=== PATIENT | male | born 1970 | race Caucasian/White ===

== ENCOUNTER 2016-09-23 08:43 | Emergency (ER) | payer BC ==
[~2016-09-23] VITALS: Ht 182.9 cm; Wt 89.8 kg
[~2016-09-23 08:43] MED LIST: NORCO 10/3251 EA ORAL
[2016-09-23 08:59] VITALS: BP 119/71
--- NOTE | 2016-09-23 09:21 | Emergency Room Report ---
History of Present Illness General Chief Complaint: Upper Respiratory Illness Source: Patient Present Illness HPI The patient presents with cough, fever, right-sided chest pain is pleuritic it began earlier this morning. It woke him up and he has pain when he moves about. Pain is 8/10, pleuritic and when he moves. Sharp. This happened to him last time he was admitted to the ICU for at least [address] [facility]. He had bilateral pneumonia at that time. The patient is a smoker. He denies any productive phlegm at this time. He took 2 [place] 10/325 since morning. The pain is still significant. He denies any nausea vomiting diarrhea dysuria skin rashes. He had a fever this morning and a slight headache. He is on medication for ADHD. He also has chronic back pain and is on chronic medication for this. No NVD, dysuria. Denies HIV. No rashes. Allergies: Coded Allergies: No Known Allergies (Unverified , 10/06/15) Patient History Past Medical History: see triage record Social History: Reports: drug use - prior "sober" for years, smoking Social History Narrative - prior drug use - now sober many years Reviewed Nursing Documentation: PMH: Agreed, PSxH: Agreed Nursing Documentation-PMH Past Medical History: No History, Except For Hx Cardiac Problems: Yes - Hypothryroidsm History Of Psychiatric Problem: Yes - taking seroquel for sleep Hx Neurological Problems: Yes - chronic back pain Review of Systems All Other Systems: negative except mentioned in HPI Physical Exam Vital Signs Date Time Temp Pulse Resp B/P Pulse Ox O2 Delivery O2 Flow Rate FiO2 09/23/16 08:52 99.7 84 18 119/71 96 Room Air Sp02 EP Interpretation: reviewed, normal General Appearance: well appearing, no apparent distress, GCS 15 Head: normocephalic Eyes: bilateral eye EOMI, bilateral eye PERRL - pupils 3 mm, bilateral eye normal inspection ENT: moist mucus membranes Neck: supple Respiratory: chest non-tender, no respiratory distress, rales Cardiovascular #1: regular rate, rhythm Cardiovascular #2: 2+ radial (R) Gastrointestinal: normal inspection, normal bowel sounds, non tender, no mass, non-distended Musculoskeletal: gait/station normal, normal range of motion, other - paraspinous tenderness Neurologic: alert, oriented x3, grossly normal Psychiatric: mood/affect normal Skin: normal inspection, warm/dry Medical Decision Making Diagnostic Impression: Primary Impression: Pneumonia Qualified Codes: J18.9 - Pneumonia, unspecified organism Additional Impressions: Chronic pain Qualified Codes: G89.29 - Other chronic pain Back pain Qualified Codes: M54.5 - Low back pain; G89.29 - Other chronic pain ER Course Patient presents with back pain, productive cough and fevers. He had similar 2 weeks ago. Differential includes pneumonia, bronchitis, pleurisy, PE number next others. Vital signs against a PE. He be evaluated with EKG, chest x-ray, labs including blood cultures and lactate, d-dimer. He'll be treated with IV hydration, IV antibiotics and analgesia. RUL infiltrate. Also + D dimer. CTA ordered. Antibiotics begun. Patient treated for pain. CTA negative for PE. WBC low which is disconcerting. + urine for amphetamine (states on ADHD med). Patient improved. Discussed with Dr. Ortiz. Transfer [facility]. Laboratory Tests Test 09/23/16 09:43 09/23/16 10:29 White Blood Count 4.7 K/UL (4.8-10.8) L Red Blood Count 4.60 M/UL (4.70-6.10) L Hemoglobin 13.0 G/DL (14.2-18.0) L Hematocrit 40.1 % (42.0-52.0) L Mean Corpuscular Volume 87 FL (80-99) Mean Corpuscular Hemoglobin 28.2 PG (27.0-31.0) Mean Corpuscular Hemoglobin Concent 32.3 G/DL (32.0-36.0) Red Cell Distribution Width 12.8 % (11.6-14.8) Platelet Count 200 K/UL (150-450) Mean Platelet Volume 8.7 FL (6.5-10.1) Neutrophils (%) (Auto) 82.7 % (45.0-75.0) H Lymphocytes (%) (Auto) 8.1 % (20.0-45.0) L Monocytes (%) (Auto) 6.9 % (1.0-10.0) Eosinophils (%) (Auto) 1.2 % (0.0-3.0) Basophils (%) (Auto) 1.0 % (0.0-2.0) Prothrombin Time 11.1 SEC (9.30-11.50) Prothrombin Time INR 1.1 (0.9-1.1) PTT 24 SEC (23-33) D-Dimer 748 ng/mL (<500) H Sodium Level 137 mEQ/L (135-145) Potassium Level 4.5 mEQ/L (3.4-4.9) Chloride Level 96 mEQ/L (98-107) L Carbon Dioxide Level 26 mEQ/L (20-30) Anion Gap 15 (5-15) Blood Urea Nitrogen 21 mg/dL (7-23) Creatinine 0.9 mg/dL (0.7-1.2) Estimate Glomerular Filtration Rate > 60 mL/min (>60) Glucose Level 102 mg/dL (74-106) Lactic Acid Level 0.90 mmol/L (0.66-2.22) Calcium Level 9.4 mg/dL (8.6-10.2) Total Bilirubin 0.4 mg/dL (0.0-1.2) Aspartate Amino Transferase (AST) 28 U/L (5-40) Alanine Aminotransferase (ALT) 22 U/L (3-41) Alkaline Phosphatase 59 U/L (40-129) Total Creatine Kinase 107 U/L (38-174) Troponin I < 0.30 ng/mL (<=0.30) Pro-B-Type Natriuretic Peptide 69 pg/mL (0-125) Total Protein 6.5 g/dL (6.6-8.7) L Albumin 4.0 g/dL (3.5-5.2) Globulin 2.5 g/dL Albumin/Globulin Ratio 1.6 (1.0-2.7) Urine Color Yellow Urine Appearance Clear Urine pH 5 (4.5-8.0) Urine Specific [place] 1.015 (1.005-1.035) Urine Protein 2+ (NEGATIVE) H Urine Glucose (UA) Negative (NEGATIVE) Urine Ketones 1+ (NEGATIVE) H Urine Occult Blood Negative (NEGATIVE) Urine Nitrite Negative (NEGATIVE) Urine Bilirubin Negative (NEGATIVE) Urine Urobilinogen 1 MG/DL (0.0-1.0) H Urine Leukocyte Esterase 1+ (NEGATIVE) H Urine RBC 0-2 /HPF (0 - 0) H Urine WBC 2-4 /HPF (0 - 0) Urine Squamous Epithelial Cells Occasional /LPF Urine Bacteria Few /HPF (NONE) Urine Opiates Screen Positive (NEGATIVE) H Urine Barbiturates Screen Negative (NEGATIVE) Phencyclidine (PCP) Screen Negative (NEGATIVE) Urine Amphetamines Screen Positive (NEGATIVE) H Urine Benzodiazepines Screen Negative (NEGATIVE) Urine Cocaine Screen Negative (NEGATIVE) Urine Marijuana (THC) Screen Negative (NEGATIVE) Microbiology Date/Time Source Procedure Growth Status 09/23/16 09:43 Nasal Nares Influenza Types A,B Antigen (VERONICA) - Final Complete EKG Diagnostic Results Rate: normal Rhythm: NSR ST Segments: no acute changes Rhythm Strip Diag. Results EP Interpretation: yes Rhythm: NSR, no PVC's, no ectopy Chest X-Ray Diagnostic Results EP Interpretation: Yes Findings: other - RUL infiltrate Number of Views: 1 CT/MRI/US Diagnostic Results CT/MRI/US Diagnostic Results : Imaging Test Ordered: CTA chest Impression No PE infiltrates Last Vital Signs Date Time Temp Pulse Resp B/P Pulse Ox O2 Delivery O2 Flow Rate FiO2 09/23/16 15:49 99.7 58 18 105/60 100 Room Air Status: improved Disposition: XFER [facility] Condition: Serious - stable for transfer Roger Vázquez M.D. Sep 23, 2016 09:21
[2016-09-23] MEDS ORDERED: Ketorolac 30mg Inj IV ONE (09:30)
[2016-09-23] MEDS ORDERED: Morphine Sulfate 4mg/ml Inj IVP ONE ×2 (09:30→14:45)
[2016-09-23 10:18] LABS: EOSINOPHILS % (AUTO) 1.2 % (0.0-3.0); LYMPHOCYTES % (AUTO) 8.1 % (20.0-45.0); MEAN CORPUSCULAR HEMOGLOBIN 28.2 PG (27.0-31.0); MEAN CORPUSCULAR HGB CONC 32.3 G/DL (32.0-36.0); MEAN CORPUSCULAR VOLUME 87 FL (80-99); MEAN PLATELET VOLUME 8.7 FL (6.5-10.1); MONOCYTES % (AUTO) 6.9 % (1.0-10.0); NEUTROPHILS % (AUTO) 82.7 % (45.0-75.0); PLATELET COUNT 200 K/UL (150-450); RED CELL DISTRIBUTION WIDTH 12.8 % (11.6-14.8); WHITE BLOOD COUNT 4.7 K/UL (4.8-10.8)
[2016-09-23 10:28] LABS: INR 1.1 (0.9-1.1); PROTHROMBIN TIME 11.1 SEC (9.30-11.50)
[2016-09-23 10:36] LABS: ALANINE AMINOTRANSFERASE 22 U/L (3-41); ALBUMIN/GLOBULIN RATIO 1.6 (1.0-2.7); ANION GAP 15 (5-15); ASPARTATE AMINO TRANSFERASE 28 U/L (5-40); CALCIUM 9.4 mg/dL (8.6-10.2); CARBON DIOXIDE 26 mEQ/L (20-30); CHLORIDE 96 mEQ/L (98-107); CREATININE 0.9 mg/dL (0.7-1.2); GLOMERULAR FILTRATION RATE > 60 mL/min (>60); HEMOLYSIS 43; POTASSIUM 4.5 mEQ/L (3.4-4.9); SODIUM 137 mEQ/L (135-145); TOTAL PROTEIN 6.5 g/dL (6.6-8.7)
[2016-09-23 10:44] LABS: TROPONIN I < 0.30 ng/mL (<=0.30)
[2016-09-23 10:47] VITALS: BP 116/63
[2016-09-23 10:49] LABS: APPEARANCE,URINE CLEAR; KETONES,URINE 1+ (NEGATIVE); LEUKOCYTE ESTERASE ,URINE 1+ (NEGATIVE); NITRITE,URINE NEGATIVE (NEGATIVE); PH,URINE 5 (4.5-8.0); PROTEIN,URINE 2+ (NEGATIVE); UROBILINOGEN,URINE 1 MG/DL (0.0-1.0)
[2016-09-23 11:00] LABS: BACTERIA,URINE FEW /HPF; RBC,URINE 0-2 /HPF (0 - 0); SQUAMOUS EPITHELIAL CELL,UR OCCASIONAL /LPF (NONE/OCC)
[2016-09-23] MEDS ORDERED: cefTRIAXone 1 GM in NS 55 ML IVPB ONE (11:00)
[2016-09-23] MEDS ORDERED: Azithromycin 500 MG in D5W 275 ML IVPB ONE (11:00)
[2016-09-23] MEDS ORDERED: Azithromycin Inj IV ONE (11:09)
[2016-09-23] MEDS ORDERED: METHOCARBAMOL500 MG ORAL (11:54)
[2016-09-23] MEDS ORDERED: ZOHYDRO ER50 M1 PO (11:54)
[2016-09-23] MEDS ORDERED: SYNTHROID150 MCG ORAL (11:54)
[2016-09-23] MEDS ORDERED: SERAQUA250 ML TP (11:54)
[2016-09-23 12:22] VITALS: BP 113/67
[2016-09-23 15:08] VITALS: BP 105/60
[2016-09-23 15:49] VITALS: BP 105/60
--- NOTE | 2016-09-25 08:49 | Diagnostic Imaging Report ---
Indication: COUGH Technique: XRAY CHEST 1 V Comparison:None Findings: Airspace disease is noted in the right upper lobe with air bronchograms. There may be some patchy airspace disease in the right lower lung as well. The heart is normal in size. Left lung is clear. No pleural fluid. Impression: Right upper lobe pneumonia. Possible patchy pneumonia or atelectasis in the right base.
--- NOTE | 2016-09-25 08:59 | Diagnostic Imaging Report ---
Indication: Shortness of breath Technique: CT angiography performed utilizing thin section spiral CT and bolus contrast injection. Axial, coronal, and sagittal images were generated. Maximum intensity projections (MIPs) were obtained in the coronal and sagittal planes. Dose: Total Dose Length Product - DLP [address] Dose Index - CTDIvol(s) 12.62, 37.87, 28.88 mGy. Findings: Examination demonstrates the aorta to be normal in caliber. There is no evidence of aortic dissection. The heart is normal in size. There are no pulmonary emboli. There is extensive airspace disease in the right upper lobe. Patchy airspace disease is also noted in the right lower lobe and right middle lobe. Some groundglass opacities are also present in the left lower lobe. The pleural spaces unremarkable. Mild degenerative changes are noted in the spine. There is evidence of previous gastric surgery. Impression: Right upper lobe pneumonia. Patchy groundglass and alveolar opacities in the right lower lobe and right middle lobe, also likely were representing pneumonia. Groundglass densities left lower lobe. This likely is inflammatory as well. Evidence of previous gastric surgery. Degenerative change of the spine. This report agrees with pulmonary reading. The CT scanner at [facility] is accredited by the [employer] and the scans are performed using protocols designed to limit radiation exposure to as low as reasonably achievable to attain images of sufficient resolution adequate for diagnostic evaluation.
--- NOTE | 2016-09-25 13:57 | Cardiology Report ---
APPROVED REPORT EKG Measurement Heart [id number] Normal sinus rhythm Normal ECG
== END 2016-09-23 16:45 | disposition short-term general hospital (02) ==
LOC: EMR 09:12
DX: J18.9 Pneumonia, unspecified organism (principal); G89.29 Other chronic pain; J06.9 Acute upper respiratory infection, unspecified; M54.9 Dorsalgia, unspecified; R05 Cough; R50.9 Fever, unspecified
CPT/HCPCS: 36415; 71010; 71275; 80053; 80300; 81003; 82550; 83605; 83880; 84484; 85025; 85379; 85610; 85730; 86710; 87040; 93005; 96360; 96361; 96374; 96375; 99285; J0456; J0696; J1885; J2270; J2405; Q9967

== ENCOUNTER 2017-04-27 04:56 | Emergency (ER) | payer BC ==
[~2017-04-27] VITALS: Ht 182.9 cm; Wt 88.5 kg
[~2017-04-27 04:56] MED LIST changes: +METHOCARBAMOL500 MG ORAL; +SERAQUA250 ML TP; +SYNTHROID150 MCG ORAL; +ZOHYDRO ER50 M1 PO
[2017-04-27 05:35] VITALS: BP 107/57
[2017-04-27] MEDS ORDERED: Albuterol ud Inhalation HHN ONE (05:45)
--- NOTE | 2017-04-27 06:08 | Emergency Room Report ---
History of Present Illness General Chief Complaint: Upper Respiratory Illness Source: Patient (LEYLA SMITH D.O.) Present Illness HPI Patient presents with complaints of cough and congestion He reports that he aspirates sometimes when he sleeps and he feels like he has again got pneumonia He feels that because he has discomfort in his back Denies any chest pain denies any vomiting or diarrhea denies any recent travel Denies any dysuria frequency Pain in the back is 3/10 Denies any neck pain or photophobia (LEYLA SMITH D.O.) Allergies: Coded Allergies: No Known Allergies (Unverified , 10/06/15) Patient History Past Medical History: see triage record Pertinent Family History: none Reviewed Nursing Documentation: PMH: Agreed, PSxH: Agreed (LEYLA SMITH D.O.) Nursing Documentation-PMH Hx Cardiac Problems: Yes - Hypothryroidsm Hx Neurological Problems: Yes - chronic back pain (LEYLA SMITH D.O.) Review of Systems All Other Systems: negative except mentioned in HPI (LEYLA SMITH D.O.) Physical Exam Vital Signs Date Time Temp Pulse Resp B/P (MAP) Pulse Ox O2 Delivery O2 Flow Rate FiO2 04/27/17 05:18 98.2 87 18 111/66 98 Room Air Sp02 EP Interpretation: reviewed, normal General Appearance: well appearing, no apparent distress Head: normocephalic, atraumatic Eyes: bilateral eye PERRL, bilateral eye EOMI ENT: hearing grossly normal, normal pharynx, TMs + canals normal, uvula midline Neck: supple, thyroid normal Respiratory: crackles - bilateral lower lobes Cardiovascular #1: regular rate, rhythm, no edema, no gallop Gastrointestinal: non tender, soft, no mass Musculoskeletal: normal inspection, back normal Neurologic: alert, oriented x3, responsive Skin: normal color, no rash Lymphatic: no adenopathy (LEYLA SMITH D.O.) Medical Decision Making ER Course bilateral lower lobes (LEYLA SMITH D.O.) ER Course Received signout 47-year-old male with cough, back pain Multiple episodes of pneumonia in the past year Last time he was hospitalized was in September Currently vital signs are stable and normal, heart rate 64, satting 98 on room air Sleeping comfortably, not tachypneic Speaking complete sentences conversing appropriately Patient continues to be stable at bedside, vital signs are normal, able to tolerate by mouth, got 1 dose of Levaquin by mouth. States that he feels much better since being in the emergency room. Patient does not meet criteria to stay in the hospital at this time Curb 65: no confusion/uremia/RR normal. Will DC home, patient given very strict return precautions such as worsening shortness of breath, feeling faint, intractable nausea vomiting, inability to tolerate by mouth Otherwise patient and agrees that patient will followup with primary care DrRene peterson later than 3-4 days. They verbalize understanding and agree with plan Rhythm Strip EP Interpretation: Yes Rate: 70 Rhythm: NSR, no PVCs, no ectopy Chest X-ray CXR: Ordered: Yes 1 view Indication: cough EP interpretation: Yes Interpretation:right-sided infiltrate Impression: right-sided pneumonia Electronically signed by Elmo Fisher MD (Elmo Fisher M.D.) Rhythm Strip Diag. Results EP Interpretation: yes Rate: 88 Rhythm: NSR, no PVC's, no ectopy (LEYLA SMITH D.O.) Last Vital Signs Date Time Temp Pulse Resp B/P (MAP) Pulse Ox O2 Delivery O2 Flow Rate FiO2 04/27/17 05:53 70 15 99 Room Air 04/27/17 05:18 98.2 111/66 (LEYLA SMITH D.O.) Disposition: HOME, SELF-CARE Condition: Improved Scripts Levofloxacin* (LEVAQUIN*) 750 Mg Tablet 750 MG ORAL DAILY for 10 Days, #10 TAB 0 Refills Prov: Elmo Fisher M.D. 04/27/17 Referrals: [facility],REFERRING (PCP) Patient Instructions: Community-Acquired Pneumonia, Adult LEYLA SMITH D.O. Apr 27, 2017 06:08 Elmo Fisher M.D. Apr 27, 2017 06:58
[2017-04-27] MEDS ORDERED: LEVAQUIN750 MG ORAL (06:23)
[2017-04-27 06:31] LABS: MEAN CORPUSCULAR HGB CONC 32.4 G/DL (32.0-36.0); MEAN CORPUSCULAR VOLUME 93 FL (80-99); PLATELET COUNT 200 K/UL (150-450); RED BLOOD COUNT 4.74 M/UL (4.70-6.10); RED CELL DISTRIBUTION WIDTH 12.2 % (11.6-14.8); WHITE BLOOD COUNT 2.5 K/UL (4.8-10.8)
[2017-04-27 07:17] LABS: ALANINE AMINOTRANSFERASE 29 U/L (12-78); ALBUMIN/GLOBULIN RATIO 1.1 (1.0-2.7); ANION GAP 5 (5-15); ASPARTATE AMINO TRANSFERASE 23 U/L (15-37); CALCIUM 9.3 MG/DL (8.5-10.1); CARBON DIOXIDE 30 MMOL/L (21-32); CHLORIDE 104 MMOL/L (98-107); CKMB 1.5 NG/ML (0.0-3.6); CREATININE 1.2 MG/DL (0.55-1.30); GLOMERULAR FILTRATION RATE > 60 mL/min (>60); LIPASE 132 U/L (73-393); POTASSIUM 3.8 MMOL/L (3.5-5.1); SODIUM 139 MMOL/L (136-145); TOTAL PROTEIN 7.3 G/DL (6.4-8.2)
[2017-04-27] MEDS ORDERED: Levofloxacin 500mg tab ORAL ONE (07:30)
[2017-04-27 07:31] VITALS: BP 108/52
[2017-04-27 08:24] LABS: BAND NEUTROPHILS % (MANUAL) 0 % (0-8); BASOPHILS % (MANUAL) 0 % (0-2); EOSINOPHILS % (MANUAL) 0 % (0-3); LYMPHOCYTES % (MANUAL) 18 % (20-45); NEUTROPHILS % (MANUAL) 74 % (45-75); PLATELET ESTIMATE ADEQUATE; PLATELET MORPHOLOGY NORMAL; TOTAL CELLS COUNTED 100
[2017-04-27] MEDS ORDERED: ZOFRAN ODT4 MG ORAL (08:27)
[2017-04-27 08:45] VITALS: BP 108/52
--- NOTE | 2017-04-27 13:57 | Diagnostic Imaging Report ---
Indication: Dyspnea Comparison: 09/23/16 A single view chest radiograph was obtained. Findings: There is persistent fairly dense consolidation involving the right upper lobe. Similar findings noted in September of 2016. Which consider possibility of neoplasm given the persistence of this finding, especially alveolar cell carcinoma, among others which can mimic pneumonia. Repeat CT is suggested. Heart size is normal. Bones are unremarkable. No pleural effusion seen. Impression: Persistent dense consolidative opacity in the right upper lobe. Pneumonia certainly possible. One should consider malignancy. Recommend contrast CT for further evaluation
--- NOTE | 2017-05-08 08:39 | Cardiology Report ---
APPROVED REPORT EKG Measurement Heart [id number] Normal sinus rhythm Normal ECG
== END 2017-04-27 09:53 | disposition home or self-care (01) ==
LOC: EMR 05:39 → CANBEDREQ 07:47 → EMR 09:53
DX: J18.9 Pneumonia, unspecified organism (principal); E03.9 Hypothyroidism, unspecified; G89.4 Chronic pain syndrome; M54.9 Dorsalgia, unspecified
CPT/HCPCS: 36415; 71010; 80053; 82550; 82553; 83605; 83690; 83880; 84484; 85007; 85025; 87040; 93005; 94640; 94664; 96361; 96374; 99284; J1956

== ENCOUNTER 2018-06-06 03:48 | Emergency (ER) | payer BC, MEDICAID ==
[~2018-06-06] VITALS: Ht 182.9 cm; Wt 93.0 kg
[~2018-06-06 03:48] MED LIST changes: +LEVAQUIN750 MG ORAL; +ZOFRAN ODT4 MG ORAL
[2018-06-06] MEDS ORDERED: VYVANSE10 MG PO (04:05)
[2018-06-06] MEDS ORDERED: SEROQUEL100 MG ORAL (04:05)
[2018-06-06] MEDS ORDERED: SYNTHROID150 MCG ORAL (04:05)
[2018-06-06] MEDS ORDERED: SUBOXONE 8 MG-1 EACH SL (04:06)
[2018-06-06] MEDS ORDERED: SUBOXONE 8 MG-1 EAC2 SL (04:06)
--- NOTE | 2018-06-06 04:25 | Emergency Room Report ---
History of Present Illness General Chief Complaint: Dyspnea/Respdistress Source: Patient Present Illness HPI Is a 48-year-old male who has a history of recurrent pneumonia. He presents with chief complaint of right lung pain. Onset for last few days. Coughing but nonproductive in nature. Worse with inspiration. Pain is sharp in nature. He said this felt like a pneumonia. He has few chest x-ray here in one CT scan which showed right upper lobe infiltrate. He was admitted to [place] before. He also saw a health officer there. Workup showed that he has aspiration when he sleeps. Neoplastic process was never told out with bronchoscopy or CT scan based on patient's description. He denies any fever or chills. Denies any chest pain. Pain is 7 out of 10. Worse with inspiration. Allergies: Coded Allergies: No Known Allergies (Unverified , 10/06/15) Patient History Past Medical History: see triage record, old chart reviewed Past Surgical History: other Pertinent Family History: none Social History: Denies: smoking - History Immunizations: other Reviewed Nursing Documentation: PMH: Agreed; PSxH: Agreed Nursing Documentation-PMH Hx Cardiac Problems: Yes - Hypothryroidsm Hx Gastrointestinal Problems: Yes - gastric bypass Hx Neurological Problems: Yes - chronic back pain Review of Systems Eye: Denies: eye pain, blurred vision ENT: Denies: ear pain, nose congestion, throat swelling Respiratory: Reports: cough, shortness of breath Cardiovascular: Denies: chest pain, palpitations Gastrointestinal: Denies: abdominal pain, diarrhea, nausea, vomiting Musculoskeletal: Denies: back pain, joint pain Skin: Denies: rash Neurological: Denies: headache, numbness Endocrine: Denies: increased thirst, increased urine Hematologic/Lymphatic: Denies: easy bruising All Other Systems: negative except mentioned in HPI Physical Exam Vital Signs Date Time Temp Pulse Resp B/P (MAP) Pulse Ox O2 Delivery O2 Flow Rate FiO2 06/06/18 03:53 98.6 95 18 92/56 96 Room Air vitals normal Sp02 EP Interpretation: reviewed, normal General Appearance: well appearing, no apparent distress, alert Head: normocephalic, atraumatic Eyes: bilateral eye PERRL, bilateral eye EOMI ENT: hearing grossly normal, normal pharynx Neck: full range of motion, supple, no meningismus Respiratory: chest non-tender, rhonchi - Rhonchi in the right upper lobe Cardiovascular #1: regular rate, rhythm, no murmur Gastrointestinal: normal bowel sounds, non tender, no mass, no organomegaly, no bruit, non-distended Musculoskeletal: back normal, gait/station normal, normal range of motion Psychiatric: mood/affect normal Skin: warm/dry Medical Decision Making Diagnostic Impression: Primary Impression: Pneumonia Qualified Codes: J18.1 - Lobar pneumonia, unspecified organism ER Course Patient presents with a cough and chest x-ray concerning for right upper lobe persistent mass/infiltrate. He also has a right lower lobe infiltrate. This is suspicious for neoplastic process. Patient will be bronchoscopy and/or biopsy. Patient does not want to be admitted to the hospital. We will have him follow-up with to see a health officer. Chest X-Ray Diagnostic Results Chest X-Ray Diagnostic Results : Chest X-Ray Ordered: Yes # of Views/Limited/Complete: 1 View Indication: Shortness of Breath EP Interpretation: Yes Interpretation: no effusion, no pneumothorax, other - Right upper lobe infiltrate. Right lower lobe infiltrate. Impression: Other - rul, rll infiltrate Electronically Signed by: Shmuel Galaviz MD Last Vital Signs Date Time Temp Pulse Resp B/P (MAP) Pulse Ox O2 Delivery O2 Flow Rate FiO2 06/06/18 04:15 95 18 Room Air 06/06/18 03:53 98.6 92/56 96 Status: improved Disposition: HOME, SELF-CARE Condition: Stable Scripts Levofloxacin* (LEVAQUIN*) 500 Mg Tablet 500 MG ORAL DAILY, #7 TAB Prov: Shmuel Galaviz MD 06/06/18 Additional Instructions: Follow-up with your doctor within a week. You will need a referral to see a health officer. You may need a bronchoscopy and/or CT-guided biopsy to rule out neoplastic process. Return if symptom worsen. Shmuel Galaviz MD Jun 06, 2018 04:25
[2018-06-06] MEDS ORDERED: Albuterol ud Inhalation HHN ONE (04:30)
[2018-06-06 04:47] LABS: HEMATOCRIT 40.4 % (42.0-52.0); HEMOGLOBIN 13.4 G/DL (14.2-18.0); MEAN CORPUSCULAR VOLUME 83 FL (80-99); PLATELET COUNT 195 K/UL (150-450); RED BLOOD COUNT 4.84 M/UL (4.70-6.10); RED CELL DISTRIBUTION WIDTH 12.3 % (11.6-14.8); WHITE BLOOD COUNT 2.7 K/UL (4.8-10.8)
[2018-06-06 04:56] LABS: ANION GAP 8 mmol/L (5-15); BLOOD UREA NITROGEN 32 mg/dL (7-18); CALCIUM 8.8 MG/DL (8.5-10.1); CARBON DIOXIDE 28 MMOL/L (21-32); CHLORIDE 102 MMOL/L (98-107); POTASSIUM 3.9 MMOL/L (3.5-5.1); SODIUM 137 MMOL/L (136-145)
[2018-06-06] MEDS ORDERED: LEVAQUIN500 MG ORAL (05:57)
[2018-06-06] MEDS ORDERED: cefTRIAXone 1 GM in NS 55 ML IVPB ONE (06:00)
[2018-06-06 06:15] VITALS: BP 111/61
--- NOTE | 2018-06-06 06:18 | Diagnostic Imaging Report ---
EXAM: XR Chest, 1 View CLINICAL HISTORY: SOB TECHNIQUE: Frontal view of the chest. COMPARISON: No relevant prior studies available. FINDINGS/IMPRESSION: Heart size normal. Right-sided lung opacities with airspace opacities most prominent in the mid lung zone and right lung base. May represent pneumonia. Recommend follow-up to resolution.
[2018-06-06 06:27] VITALS: BP 111/61
== END 2018-06-06 06:29 | disposition home or self-care (01) ==
LOC: EMR 04:16
DX: J18.9 Pneumonia, unspecified organism (principal); E03.9 Hypothyroidism, unspecified; G89.29 Other chronic pain; M54.9 Dorsalgia, unspecified; Z98.84 Bariatric surgery status
CPT/HCPCS: 36415; 71045; 80048; 85025; 94640; 96365; 99284; J0696

== ENCOUNTER 2020-07-03 17:37 | Emergency (ER) | payer BC, MEDICAID, OTHER ==
[~2020-07-03] VITALS: Ht 182.9 cm; Wt 117.9 kg
[~2020-07-03 17:37] MED LIST changes: +LEVAQUIN500 MG ORAL; +SEROQUEL100 MG ORAL; +SUBOXONE 8 MG-1 EAC2 SL; +SUBOXONE 8 MG-1 EACH SL; +VYVANSE10 MG PO
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
[2020-07-03] MEDS ORDERED: Morphine Sulfate 2mg/ml Inj(IV/IM USE ONLY) IM ONE (18:00)
[2020-07-03] MEDS ORDERED: IBUPROFEN600 M1 ORAL (19:06)
[2020-07-03] MEDS ORDERED: NORCO 5-325 TA1 EAC1 ORAL ×2 (19:06)
[2020-07-03 19:12] VITALS: BP 158/58
--- NOTE | 2020-07-03 19:16 | Diagnostic Imaging Report ---
EXAM: XR Right Ankle Complete, 3 or More Views CLINICAL HISTORY: INJ TECHNIQUE: Frontal, lateral and oblique views of the right ankle. COMPARISON: No relevant prior studies available. IMPRESSION: Evidence of comminuted trimalleolar fracture. Slight subluxation of the ankle joint with increase in the medial clear space. Joint effusion and soft tissue swelling.
--- NOTE | 2020-07-03 19:17 | Diagnostic Imaging Report ---
EXAM: XR Right Foot Complete, 3 or More Views CLINICAL HISTORY: INJ TECHNIQUE: Frontal, lateral and oblique views of the right foot. COMPARISON: No relevant prior studies available. IMPRESSION: No fracture of the foot. Ankle fracture described separately.
== END 2020-07-03 19:12 | disposition home or self-care (01) ==
LOC: EMR 18:22
DX: S82.851A Displaced trimalleolar fracture of right lower leg, initial encounter for closed fracture (principal); E03.9 Hypothyroidism, unspecified; W01.0XXA Fall on same level from slipping, tripping and stumbling without subsequent striking against object, initial encounter; Y93.9 Activity, unspecified; Y92.9 Unspecified place or not applicable
CPT/HCPCS: 29515; 73610; 73630; 96372; 99284; J2270